=== PATIENT | male | born 1945 | race Hispanic/Latino ===

== ENCOUNTER 2019-05-13 02:38 | Inpatient (IN) | payer MEDICARE, OTHER ==
[2019-05-13] MEDS ORDERED: Ondansetron PF 4 MG/2 ML Vial IVP PRN (11:28)
[2019-05-13] MEDS ORDERED: Acetaminophen 325 MG TAB PO PRN (11:28)
[2019-05-13] MEDS ORDERED: Ondansetron ODT 4 MG TAB PO PRN (11:28)
[2019-05-13] MEDS ORDERED: cloNIDine 0.1 MG TAB PO PRN (11:34)
--- NOTE | 2019-05-13 11:34 | CT ---
CT ABDOMEN AND PELVIS WITHOUT CONTRAST: HISTORY: Back pain. COMPARISON: None. FINDINGS: The lung bases are clear. Heart size is mildly enlarged. There is severe hydroureteronephrosis. There appears to be a mass at the posterior urinary bladder, which could be sequela of prostate cancer extension into the urinary bladder. There is an abnormal m ass-like appearance of the right seminal vesicle. Diffuse osteoblastic metastatic disease. No dilated loops of large or small bowel. Mild perinephric stranding. The aortoiliac contour is nonaneurysmal. Noncontrast evaluation of the liver, spleen, and pancreas is unremarkable. IMPRESSION: Large prostate with a mass within the posterior wall of the urinary bladder, which may be prostatic c ancer extension to the urinary bladder. There is also an abnormal soft tissue mass-like appearance t o the right seminal vesicle, concerning for prostatic cancer extension into the seminal vesicle. The re is also occlusion of both ureterovesical junctions, to suggest mass, causing severe bilateral hydr oureteronephrosis. Urgent urologic consultation advised with direct visualization. POS: CET
[2019-05-13] MEDS ORDERED: Amlodipine 5 MG TAB PO SCH (11:45)
[2019-05-13] MEDS ORDERED: Folic Acid 1 MG TAB PO SCH (11:45)
[2019-05-13] MEDS ORDERED: Cyanocobalamin (Vitamin B-12) 1,000 MCG TAB PO SCH (11:45)
--- NOTE | 2019-05-13 11:58 | HP ---
CHIEF COMPLAINT: Generalized weakness and back pain. HISTORY OF PRESENT ILLNESS: The patient is a 74-year-old male, who presented to the emergency room with generalized weakness and low back pain. He has generalized body aches that started 1 or 2 days ago. He had some urinary incontinence 1 to 2 days before this, however, that has improved. No dysuria, hematuria, urgency, fever, chills reported. He denies any weight loss. He took some ibuprofen yesterday without much relief. For this reason, he presented to the emergency room. No chest pain or shortness of breath reported. He denies daily ibuprofen use. In the emergency room at [facility], his initial vital signs showed temperature 97.3, pulse rate of 70, blood pressure of 187/96, respirations of 18 with O2 saturation of 100% on room air. His workup was consistent with anemia with hemoglobin of 7 and acute kidney injury with creatinine 4.52 and BUN of 57. Please note that on the previous day, he was evaluated in the emergency room for urinary incontinence. His creatinine at that time was 3.84 with BUN of 58. He was transferred to this facility for hospital admission. PAST MEDICAL HISTORY: Reviewed with the patient and none. PAST SURGICAL HISTORY: Reviewed with the patient and none. ALLERGIES: THE PATIENT IS ALLERGIC TO CODEINE. CURRENT HOME MEDICATIONS: Reviewed with the patient and none. SOCIAL HISTORY: The patient currently lives at home with his family. No smoking, alcohol, or drug use. He makes his own decision with the help of his family. He denies any tobacco or alcohol use. FAMILY HISTORY: Negative for heart disease. REVIEW OF SYSTEMS: The patient has some urinary incontinence on and off. All other review of systems was reviewed and was found negative. PHYSICAL EXAMINATION: VITAL SIGNS: As discussed above. GENERAL: A 74-year-old male, in no apparent distress. HEENT: Head; atraumatic, normocephalic. Sclerae anicteric. Moist mucous membranes. No oral lesion. NECK: Supple. No JVD appreciated. No carotid bruit. LUNGS: Clear to auscultation bilaterally. No wheezing, rales, or rhonchi. HEART: S1 and S2 present. Regular rate and rhythm. No murmurs, rubs, or gallops appreciated. ABDOMEN: Soft and nontender. Bowel sounds present. EXTREMITIES: No edema or calf tenderness. NEUROLOGIC: Grossly nonfocal. Moves all 4 extremities. PSYCHIATRY: Alert, awake, oriented x3. SKIN: Warm and dry. LYMPH NODES: No palpable lymph nodes in the neck. PERIPHERAL VASCULAR: Radial pulses palpable bilaterally. MUSCULOSKELETAL: No joint swelling tenderness. IMAGING STUDIES: EKG by my review showed normal sinus rhythm with left ventricular hypertrophy. CT scan of the abdomen and pelvis by my review showed marked bilateral hydronephrosis and bladder distention with enlarged prostate along with diffuse blastic bone lesion. LABORATORY FINDINGS: Laboratory findings as discussed above. Hemoccult stool was negative at [place]. IMPRESSION: 1. Acute kidney injury secondary to obstructive uropathy. 2. Anemia with negative stool Hemoccult. 3. Enlarged prostate with diffuse blastic bone lesion (suspected prostate cancer). 4. Metabolic acidosis secondary to renal insufficiency. His bicarbonate was 15. 5. Hyperglycemia with blood glucose of 122, rule out diabetes. 6. Generalized weakness/body aches, probably secondary to bone metastasis. PLAN: The patient will be monitored on the medical floor. We will transfuse 1 unit of PRBC. Nephrology and Urology consultation. IV hydration. Soni catheter has been placed. We will check PSA and hemoglobin A1c. Check iron profile. We will repeat labs in a.m. Vital signs per protocol. Plan of care was discussed with the patient in detail. He stated understanding. Job ID: [id number]
--- NOTE | 2019-05-13 12:42 | RAD ---
CHEST ONE VIEW: 05/13/19 HISTORY: Back pain. COMPARISON: None. FINDINGS: Heart size is enlarged. Mild pulmonary venous congestion. No pneumothorax. No effusion. IMPRESSION: Mild cardiomegaly and pulmonary venous congestion. POS: CET
[2019-05-13 13:18] LABS: Hemoglobin A1c 5.8 % (4.0-6.0)
[2019-05-13 13:31] LABS: Anion Gap 18 mmol/L (10-20); BUN (Urea Nitrogen) 57 mg/dL (8.4-25.7); Calc. Creatinine Clearance 0 mL/min (70-130); Calcium 7.2 mg/dL (7.8-10.44); Carbon Dioxide 17 mmol/L (23-31); Chloride 107 mmol/L (98-107); Estimated GFR-MDRD 15; Glucose 84 mg/dL (83-110); Iron 83 ug/dL (65-175); Iron Binding Capacity, Total 254 mcg/dL (261-462); Potassium 4.8 mmol/L (3.5-5.1); Sodium 137 mmol/L (136-145)
[2019-05-13] MEDS: Sodium Chloride 0.9% 1,000 ML IV SCH ×2 (14:01→22:32)
[2019-05-13 14:07] VITALS: BMI 25.2
[2019-05-13 14:21] LABS: Ferritin 19392.31 ng/mL (22-322)
[2019-05-13 15:03] LABS: PSA-Symptomatic (DIAGNOSTIC) 1711.01 ng/mL (0-4.0)
[2019-05-13 16:46] LABS: Clarity Clear (Clear); Leukocyte Negative (Negative); Nitrite Negative (Negative); Specific Gravity, Urine 1.015 (1.005-1.030); pH, Urine 5.5 (5.0-9.0)
[2019-05-13 16:47] LABS: Bacteria/HPF None Seen HPF (None Seen); Bilirubin Negative (Negative); Blood, Urine Moderate (Negative); Glucose, Urine (Dipstick) Negative (Negative); Hyaline Casts/LPF 0-3 HYALINE CAST LPF (0-3 Hyaline); Protein, Urine (Dipstick) 30 mg/dL (Neg-Trace); Squamous Epithelial 0-3 HPF (0-3); Urobilinogen 0.2 mg/dL (0.2-1.0); WBC/HPF 0-3 HPF (0-3)
--- NOTE | 2019-05-13 17:39 | CON ---
DATE OF CONSULTATION: 05/13/2019 SERVICE: Urology. CONSULTING: [facility]. GAS WELDING EQUIPMENT MECHANIC: Dr. Cole. REASON FOR CONSULTATION: Hydronephrosis. HISTORY OF PRESENT ILLNESS: Mr. Toledo is a 74-year-old male, who presented to the emergency room yesterday with generalized weakness and lower back pain as well as pain down into his legs. He stated these aches started about 1 to 2 days ago. Upon arrival to the ER at [facility] in [place], he was found to be in renal failure with a creatinine of 4.5. CT was done, which demonstrated bilateral hydronephrosis and a distended filled bladder. A catheter was placed at that time and he was subsequently transferred to [facility] in [place]. On my discussion with the patient, he states that he does have urinary incontinence and has urinary frequency about 15 times per day with nocturia x7. His stream he thinks is okay, but he does admit to hesitancy and sometimes intermittency. He is currently not complaining of any significant complaints with his catheter at this current time. The patient has very little health care and has known real medical history primarily due to the fact that he does not go to the doctor. PAST MEDICAL HISTORY: None. PAST SURGICAL HISTORY: None. ALLERGIES: CODEINE. HOME MEDICATIONS: None. SOCIAL HISTORY: The patient lives at home with his family. He denies smoking, illicit drugs, or alcohol use. FAMILY HISTORY: Noncontributory. REVIEW OF SYSTEMS: A 12-point review of systems reviewed and negative other than what was commented on the HPI. Additionally, he has no shortness of breath, lower extremity swelling, chest pain, diarrhea, constipation, hematuria, UTIs, dysuria , nephrolithiasis, or family history of prostate cancer. Remainder of the review of systems reviewed and negative. PHYSICAL EXAMINATION: VITAL SIGNS: Temperature 97.8, pulse 96, respirations 16, blood pressure 188/91 , and saturations 96% on room air. GENERAL: No apparent distress. Well-nourished, well-developed, appears stated age. HEENT: Normocephalic, atraumatic. Pupils symmetric and round. Sclerae are nonicteric. Moist mucous membranes. Trachea midline. CARDIOVASCULAR: Regular rate and rhythm. Normal S1, S2. Symmetric pulses. CHEST: No increased work of breathing. Symmetric expansion. LUNGS: Clear anteriorly. ABDOMEN: Soft, nontender, and nondistended. Positive bowel sounds. No organomegaly. No hernias. No peritoneal signs or guarding. : Soni catheter in place, draining clear yellow urine. Nonfocal penis without lesions. Testes are bilaterally descended. HENRIQUE: Grade IV prostate with hard irregular feel throughout the prostate, fixed, worse at L base with extension onto bladder and SVs EXTREMITIES: No clubbing, cyanosis, or edema. MUSCULOSKELETAL: No joint deformities or joint erythema noted. Full range of motion. SKIN: Warm and dry. Good turgor. No rashes or lesions. LYMPH NODES: No lymphadenopathy in the cervical, supraclavicular, axillary regions, or inguinal area. NEUROLOGIC: Cranial nerves 2 through 12 grossly intact. No focal or sensory motor deficits identified. PSYCHIATRIC: Alert and oriented x3. Appropriate mood and affect. LABORATORY EVALUATION: The full set of labs are in the [employer] system which I have reviewed. Of note, the patient's creatinine is currently 4.01 with a BUN of 57. PSA is 1711. CT done on May 13, demonstrates a large prostate with mass effect on the posterior wall of the urinary bladder, which may be prostatic cancer extension into the bladder. There is also abnormal soft tissue, masslike appearance in the right seminal vesicle concerning for prostate cancer extension there. There is potential occlusion of both ureterovesical junctions causing severe bilateral hydronephrosis. ASSESSMENT AND PLAN: A 74-year-old male with likely advanced metastatic prostate cancer causing bilateral ureteral obstruction. In this setting, stents are generally extremely difficult to place and have a high risk of occlusion despite stenting. I would give strong consideration to bilateral percutaneous nephrostomy tubes, which I will set the patient up for. With a PSA 1700, I would also recommend getting a bone scan as he likely has significant skeletal osseous metastatic disease. Referral to Oncology would be recommended. I will start the patient on bicalutamide at this time. We may also consider having the patient undergo a prostate biopsy while he is here in the hospital to go ahead and obtain a tissue diagnosis, so that the patient may subsequently start on Lupron. I will start him on bicalutamide at the current time for initiation of androgen deprivation, which will help his prostate cancer. Ketoconazole was not available in hospital. Some of this workup can also be done as an outpatient if necessary. I would recommend keeping the Soni catheter in place for the time being. I will continue to follow along with this patient and make recommendations. Job ID: [id number] MTDD
[2019-05-13 18:34] LABS: INR-International Normal Ratio 1.2; PTT 34.5 SEC (22.9-36.1); Prothrombin Time 15.4 SEC (12.0-14.7)
[2019-05-13] MEDS: Tamsulosin HCl 0.4 MG CAP PO SCH (22:31)
[2019-05-13] MEDS: Senokot S 8.6-50 MG TAB PO SCH (22:31)
[2019-05-13] MEDS: Amlodipine 5 MG TAB PO SCH (22:31)
[2019-05-13] MEDS: Heparin 5,000 UNITS/ML VIAL SC SCH (22:33)
--- NOTE | 2019-05-14 00:05 | CON ---
DATE OF CONSULTATION: CONSULTING PHYSICIAN: Kadi Madrigal MD REASON FOR CONSULTATION: Advanced kidney disease. IMPRESSION: 1. Advanced chronic kidney disease, this is likely in the context of long-time obstructive uropathy. 2. Metabolic acidosis related to problem #1. 3. Anemia, likely in the context of anemia of chronic disease. 4. Obstructive uropathy in the context of prostatic pathology. PLAN: 1. The patient already has a Soni catheter, which is very important. 2. Urology is on the case. 3. We will continue to monitor the renal function status post relieve of his obstruction and identify where the renal function will settle as baseline. 4. No emergent indication for renal replacement therapy (hemodialysis though this modality of treatment might become indicated if the patient's renal function does not show significant improvement). 5. Further management will be dependent on the clinical course. Meanwhile, renally dose all medications for low GFR and avoid potentially nephrotoxic agents. HISTORY OF PRESENT ILLNESS: A 74-year-old gentleman, transferred from [facility] where the patient initially presented with generalized weakness and back pain. Clinical evaluation revealed the patient with bilateral hydronephrosis as well as enlarged prostate. Soni catheterization did relieve bladder distention. The patient gives a history of frequent urination during the day, according to the patient up to 15 times small amount. The patient denies any blood in the urine nor any blood in the stool. As a result of these findings, decision has been taken to involve Renal in the management of this case. PAST MEDICAL HISTORY: Pretty much insignificant. ALLERGIES: TO CODEINE. MEDICATIONS: None. SOCIAL HISTORY: Denies alcohol. No tobacco. No illicit drug use. FAMILY HISTORY: No family history of kidney disease. REVIEW OF SYSTEMS: As documented in the body of the history. All other systems were reviewed and found not to be significantly related to present illness. PHYSICAL EXAMINATION: GENERAL: The patient is found not to be in any obvious respiratory distress, noted with the following vital signs. VITAL SIGNS: Afebrile, temperature 97.8, pulse 73, respiratory rate of 16, O2 saturation of 96% with blood pressure of 188/91. HEENT: Unremarkable. Moist oral mucosa. No conjunctival injection or icterus. NECK: Supple. CARDIOVASCULAR: First and second heart sounds are heard. RESPIRATORY: Clear to auscultation. DIGESTIVE: Reveals a benign abdomen with positive bowel sounds. EXTREMITIES: No peripheral edema. SKIN: No new gross rash, lymphatics, no peripheral lymphadenopathy. SUMMARY: A 74-year-old gentleman who presented here with low back pain, now noted with significant obstructive uropathy and renal failure. Thank you for this consultation. We will follow with you. Job ID: [id number]
[2019-05-14] MEDS: Sodium Chloride 0.9% 1,000 ML IV SCH ×3 (03:35→18:45)
[2019-05-14 06:01] LABS: #Eosinphils 0.1 thou/uL (0.0-0.7); #Lymphocytes 0.6 thou/uL (1.20-3.40); #Monocytes 0.2 thou/uL (0.11-0.59); #Neutrophils 2.1 thou/uL (1.40-6.50); %Basophils 0.4 % (0.0-1.0); %Eosinophils 2.2 % (0.0-10.0); %Lymphocytes 18.5 % (21.0-51.0); %Monocytes 6.1 % (0.0-10.0); %Neutrophils 72.8 % (42.0-75.0); Hemoglobin 8.7 g/dL (14.0-18.0); Mean Corpuscular HGB CONC 33.4 g/dL (32.0-36.0); Mean Corpuscular Hemoglobin 30.3 pg (27.0-31.0); Mean Corpuscular Volume 90.8 fL (78.0-98.0); Mean Platelet Volume 7.1 fL (7.4-10.4); Platelet Count 178 thou/uL (130-400); RBC Distribution Width 14.3 % (11.5-14.5); Red Blood Cell (RBC) Count 2.86 mill/uL (4.70-6.10); White Blood Cell (WBC) Count 2.9 thou/uL (4.8-10.8)
[2019-05-14 06:23] LABS: Albumin 3.8 g/dL (3.4-4.8); Anion Gap 17 mmol/L (10-20); BUN (Urea Nitrogen) 56 mg/dL (8.4-25.7); BUN/Creatinine Ratio 15.38; Calc. Creatinine Clearance 17 mL/min (70-130); Calcium 6.8 mg/dL (7.8-10.44); Carbon Dioxide 15 mmol/L (23-31); Chloride 110 mmol/L (98-107); Estimated GFR-MDRD 16; Glucose 88 mg/dL (83-110); Phosphorus 5.4 mg/dL (2.3-4.7); Potassium 4.8 mmol/L (3.5-5.1); Sodium 137 mmol/L (136-145)
[2019-05-14] MEDS: Amlodipine 5 MG TAB PO SCH ×2 (09:43→21:39)
[2019-05-14] MEDS: Folic Acid 1 MG TAB PO SCH (09:43)
[2019-05-14] MEDS: Cyanocobalamin (Vitamin B-12) 1,000 MCG TAB PO SCH (09:43)
[2019-05-14] MEDS: Senokot S 8.6-50 MG TAB PO SCH ×2 (09:43→21:39)
[2019-05-14] MEDS: Bicalutamide 50 MG TAB PO SCH (09:44)
[2019-05-14] MEDS: Heparin 5,000 UNITS/ML VIAL SC SCH (09:44)
[2019-05-14] MEDS ORDERED: Fentanyl 100 MCG/2 ML VIAL ONE (10:17)
[2019-05-14] MEDS ORDERED: Midazolam HCl 2 mg/2 ml Vial ONE (10:17)
[2019-05-14] MEDS ORDERED: Sodium Bicarbonate 2.5 MEQ/5 ML VIAL ONE (10:18)
[2019-05-14] MEDS ORDERED: Sodium Chloride 0.9% 10 ML ONE (10:18)
[2019-05-14] MEDS ORDERED: Iopamidol 300 61% 30 ML VIAL ONE (10:38)
--- NOTE | 2019-05-14 14:27 | SPC ---
Sonographic guided left percutaneous nephrostomy catheter placement Sonographic guided right percutaneous nephrostomy catheter placement. HISTORY: Pelvic cancer with bilateral ureteral obstruction. CONSCIOUS SEDATION: At least 45 minutes was spent with the patient for conscious sedation. FINDINGS: After explaining the procedure and answering all questions, patient was placed on the fluor oscopy table in prone position. Sterile technique, buffered local anesthesia, sonographic guidance, and a left flank approach were used to carefully advance a 22-gauge spinal needle through a dilated l eft inferior pole renal calyx into the collecting system. Small amount of blood-tinged urine was aspirated. Guidewire was then placed. Catheter was positioned into the distal left ureter, where a wire and contrast were unable to be pass ed into the urinary bladder. Over the wire, an 8 Nauruan skater nephrostomy catheter was carefully placed into the renal pelvis. Catheter was left to drain urine. Secured externally with 0 silk suture . Patient was then repositioned for access to the right renal system. Sterile technique, buffered local anesthesia, sonographic guidance, and a right flank approach were used to carefully advance a 22-gauge spinal needle through a dilated right inferior pole renal calyx into the collecting system. Small amount of blood-tinged urine was aspirated. Guidewire was then placed. Catheter was positioned into the distal right ureter, where a wire and contrast were unable to be pas sed into the urinary bladder. Over the wire, an 8 [place] skater nephrostomy catheter was carefully placed into the renal pelvis. Catheter was left to drain urine. Secured externally with 0 silk suture . Fluoroscopy time 7.0 minutes. Patient tolerated the procedure well and was returned in unchanged condition. IMPRESSION: Technically successful ultrasound-guided bilateral percutaneous nephrostomy placement. Ob struction at each distal ureter.
[2019-05-14] MEDS ORDERED: Fleet Enema 133 ML BOT PR SCH (18:15)
--- NOTE | 2019-05-14 18:25 | PRG ---
DATE OF SERVICE: 05/14/2019 SUBJECTIVE: The patient states he is feeling well. His pain in his back and legs has pretty much disappeared. He had his nephrostomy tubes placed today. His Soni catheter is still in. He denies any fevers or chills, nausea or vomiting. Otherwise, states he is doing fine. OBJECTIVE: VITAL SIGNS: Temperature 98, pulse 77, respirations 18, blood pressure 148/76, and saturation 96% on room air. GENERAL: No apparent distress. Communicative and alert. CARDIOVASCULAR: Regular rate and rhythm. Normal S1 and S2. ABDOMEN: Soft, nontender, and nondistended. Positive bowel sounds. BACK: Nephrostomy tubes in place, draining clear yellow urine. : Soni catheter in place, draining clear yellow urine. EXTREMITIES: No clubbing, cyanosis, or edema. CHEST: No increased work of breathing. Symmetric expansion of the lungs. LABORATORY EVALUATION: Full set of labs are in the [employer] system, which I have reviewed. Of note, white count is 2.9, with a hemoglobin of 8.7. Creatinine has come down to 3.64. Urinalysis demonstrates moderate blood, 4 to 6 red cells, no evidence of infection. ASSESSMENT AND PLAN: A 74-year-old male with likely metastatic advanced prostate cancer with bilateral ureteral obstruction and bilateral hydronephrosis, managed with nephrostomy tubes. We will plan to remove his catheter tomorrow. I have discussed prostate biopsy with the patient. I described how a transrectal ultrasound-guided prostate biopsy is performed. Since he is in the hospital, we can do this in the operating room with some sedation, which will make the experience more pleasant. Risks include, but are not limited to, serious bleeding, prostatitis or sepsis, and nondiagnostic results. He understands the risks of biopsy and wishes to proceed forward. I will have him do a Fleet enema on the morning of the biopsy, administered by the nursing staff, and start him on a dose of ceftriaxone for prophylaxis. He will need to be n.p.o. after midnight. Job ID: [id number]
[2019-05-14] MEDS ORDERED: Epoetin (ESRD) 20,000 UNITS/ML SC SCH (19:45)
[2019-05-14] MEDS ORDERED: EPOETIN ALFA-EPBX (ESRD) 4,000 UNIT/ML VIAL SC SCH (20:00)
--- NOTE | 2019-05-14 20:11 | PRG ---
DATE OF SERVICE: 05/14/2019 SUBJECTIVE: The patient is seen and examined, seems to be feeling a little bit better. Noted with the following vital signs. OBJECTIVE: VITAL SIGNS: Afebrile, temperature 98; pulse 77; respiratory rate of 18; O2 saturations 96% with blood pressure 148/76. HEENT: Unremarkable. CARDIOVASCULAR SYSTEM: First and second heart sounds were heard. RESPIRATORY SYSTEM: Clear to auscultation. DIGESTIVE SYSTEM: Revealed a benign abdomen. EXTREMITIES: No peripheral edema. SKIN: No new gross rash. LYMPHATICS: No peripheral lymphadenopathy. LABORATORY INVESTIGATION: Showed a white count of 2.9 and hemoglobin of 8.7. Chemistry showed a creatinine down to 3.64, bicarb of 15, potassium of 6.8 with a phosphorus of 5.4. Ferritin 19,392, iron of 83. IMPRESSION: 1. Advanced chronic kidney disease in the context of chronic obstructive uropathy. 2. Anemia, likely anemia of chronic kidney disease. 3. Likely metastatic prostatic carcinoma. PLAN: 1. The patient to be placed on erythropoietin stimulating agent. 2. The patient likely to benefit from bicarb supplementation. 3. We will start this patient on active vitamin D. 4. No emergent indication at this point for renal replacement therapy. Job ID: [id number]
--- NOTE | 2019-05-14 21:25 | PRG ---
DATE OF SERVICE: 05/14/2019 SUBJECTIVE: A 74-year-old male with no previous medical history, presented to the hospital with generalized weakness and back pain. His workup was consistent with acute kidney injury along with obstructive uropathy. Soni catheter was placed. CURRENT MEDICATIONS: Reviewed. OBJECTIVE: VITAL SIGNS: Temperature 97.7, respirations 16, pulse rate 73, blood pressure 137/77, O2 saturation 100% on room air, output of 3400, input 4550. GENERAL: A 74-year-old male, in no apparent distress. HEENT: Head; atraumatic, normocephalic. Sclerae anicteric. Moist mucous membranes. No oral lesion. NECK: Supple. No JVD appreciated. No carotid bruit. LUNGS: Clear to auscultation bilaterally. No wheezing, rales, or rhonchi. HEART: S1 and S2 present. Regular rate and rhythm. 2/6 systolic murmur over the left lateral sternal border. ABDOMEN: Soft, nontender. Bowel sounds present. No rebound or guarding. : Bilateral nephrostomy tube noted. EXTREMITIES: No edema or calf tenderness. NEUROLOGIC: Grossly nonfocal. Moves all 4 extremities. PSYCHIATRIC: Alert, awake, oriented x3. Normal affect. LABORATORY FINDINGS: WBC 2.9 with hemoglobin 8.7, hematocrit 26, platelet of 178. Chemistry showed sodium 137, potassium 4.8, chloride 110, bicarb 15, BUN 56, creatinine 3.64. Ferritin was 19,392. PSA 1711. Hemoglobin A1c 5.8. Echocardiogram showed ejection fraction 55% to 60% with [id number] mitral regurgitation, [id number] tricuspid regurgitation, severely elevated pulmonary artery pressure. Chest x-ray by my review was negative for infiltrate. IMPRESSION: 1. Acute kidney injury secondary to prostate cancer. 2. Chronic anemia. 3. Diffuse blastic bone lesion secondary to bone metastasis. 4. Metabolic acidosis. 5. Impaired glucose tolerance. 6. Generalized weakness, multifactorial. 7. Leukopenia. PLAN: The patient underwent bilateral nephrostomy today. He will undergo prostate biopsy tomorrow. Soni catheter will probably be discontinued. He will be n.p.o. past midnight. We will continue IV hydration. We will recheck labs in a.m. He will receive ceftriaxone prior to procedure. We will continue amlodipine. He is currently on Casodex. Epogen has been started for anemia. Heparin subcu will be discontinued. Continue Flomax. Bone scan has been ordered. Oncology has been consulted. Job ID: [id number]
[2019-05-14] MEDS: Tamsulosin HCl 0.4 MG CAP PO SCH (21:38)
[2019-05-14] MEDS: Sodium Bicarbonate Tab 325 MG TAB PO SCH (21:38)
[2019-05-15 05:50] LABS: Platelet Count 188 thou/uL (130-400)
[2019-05-15 06:15] LABS: Albumin 3.6 g/dL (3.4-4.8); Anion Gap 16 mmol/L (10-20); BUN (Urea Nitrogen) 54 mg/dL (8.4-25.7); BUN/Creatinine Ratio 16.31; Calc. Creatinine Clearance 19 mL/min (70-130); Calcium 6.7 mg/dL (7.8-10.44); Carbon Dioxide 15 mmol/L (23-31); Chloride 112 mmol/L (98-107); Estimated GFR-MDRD 18; Glucose 82 mg/dL (83-110); Phosphorus 4.8 mg/dL (2.3-4.7); Potassium 4.5 mmol/L (3.5-5.1); Sodium 138 mmol/L (136-145)
[2019-05-15] MEDS: Sodium Chloride 0.9% 1,000 ML IV SCH ×2 (07:30→12:51)
[2019-05-15] MEDS ORDERED: cefTRIAXone\\ROCEPHIN 1 GM in Sodium Chloride 0.9% 100 ML IVPB SCH (09:00)
[2019-05-15] MEDS: Bicalutamide 50 MG TAB PO SCH (09:19)
[2019-05-15] MEDS: Amlodipine 5 MG TAB PO SCH ×2 (09:20→20:38)
[2019-05-15] MEDS: Senokot S 8.6-50 MG TAB PO SCH ×2 (09:21→20:38)
[2019-05-15] MEDS: Cyanocobalamin (Vitamin B-12) 1,000 MCG TAB PO SCH ×2 (09:22→16:15)
[2019-05-15] MEDS ORDERED: cefTRIAXone\\ROCEPHIN 1 GM VIAL ONE (12:57)
[2019-05-15] MEDS ORDERED: Sodium Chloride 0.9% 100 ML ONE (12:57)
[2019-05-15] MEDS ORDERED: PROPOFOL 200 MG/20 ML VIAL ONE (13:46)
[2019-05-15] MEDS ORDERED: PHENYLEPHRINE-NS 100 MCG/ML 10 ML SYRINGE ONE (13:46)
[2019-05-15] MEDS ORDERED: Fentanyl 100 MCG/2 ML VIAL ONE (14:42)
[2019-05-15] MEDS ORDERED: Midazolam HCl 2 mg/2 ml Vial ONE (14:42)
[2019-05-15] MEDS ORDERED: Propofol 500 MG/50 ML VIAL ONE (14:42)
--- NOTE | 2019-05-15 14:45 | NM ---
EXAM: NM Bone Scan STANDARD PROVIDED CLINICAL HISTORY: Prostate cancer COMPARISON: CT abdomen and pelvis 05/13/2019 FINDINGS: 30.4 mCi technetium 99 M labeled MDP IV Multifocal abnormal radiotracer uptake involving primarily the axial skeleton with involvement of bot h proximal femora and both humeri also noted. Given the diffuse osseous sclerosis seen by CT there is likely a partial SuperScan effect. IMPRESSION: Findings compatible with diffuse osseous metastatic disease.
[2019-05-15] MEDS ORDERED: Ondansetron HCl/PF 4 MG/2 ML Vial IVP PRN (15:47)
[2019-05-15] MEDS: Sodium Bicarbonate Tab 325 MG TAB PO SCH ×2 (16:14→20:38)
[2019-05-15] MEDS: Calcitriol 0.25 MCG CAP PO SCH (16:14)
[2019-05-15] MEDS: Folic Acid 1 MG TAB PO SCH (16:15)
[2019-05-15] MEDS: Tamsulosin HCl 0.4 MG CAP PO SCH (20:38)
--- NOTE | 2019-05-15 20:49 | PRG ---
DATE OF SERVICE: 05/15/2019 SUBJECTIVE: The patient is seen and examined. He claims to be feeling better, noted with the following vital signs. OBJECTIVE: VITAL SIGNS: Afebrile, temperature 97.5, pulse 75, respiratory rate of 16, O2 saturation of 99% with blood pressure 129/75 to 147/83. HEENT: Unremarkable. CARDIOVASCULAR SYSTEM: First and second heart sounds were heard. RESPIRATORY SYSTEM: Clear to auscultation. DIGESTIVE SYSTEM: Revealed a benign abdomen. Positive bowel sounds. EXTREMITIES: No peripheral edema. SKIN: No new gross rash. LYMPHATICS: No peripheral lymphadenopathy. LABORATORY INVESTIGATION: Showed a hemoglobin of 9. Chemistry showed a creatinine of 3.31, BUN of 54, bicarb of 15, phosphorus of 4.8 with a calcium of 6.7. IMPRESSION: 1. Acute on chronic kidney disease. 2. Chronic kidney disease, advanced likely in the context of chronic obstructive uropathy. 3. Metastatic prostatic carcinoma. 4. Metabolic acidosis. 5. Anemia. PLAN: 1. The patient to continue with current renal supportive measures. 2. Discontinue IV fluids. 3. Sodium bicarbonate supplementation. 4. Erythropoiesis-stimulating agent. 5. Renally dose all medications and avoid potentially nephrotoxic agents. 6. Further management to be dependent on the clinical course. Job ID: [id number]
--- NOTE | 2019-05-15 21:53 | OP ---
DATE OF PROCEDURE: 05/15/2019 SERVICE: Urology. PREOPERATIVE DIAGNOSIS: Elevated PSA. POSTOPERATIVE DIAGNOSIS: Elevated PSA. PROCEDURE PERFORMED: Transrectal ultrasound-guided biopsy x4. INDICATION FOR PROCEDURE: Mr. Toledo is a 74-year-old male, who has a high likelihood of having metastatic prostate cancer. His PSA is 1700 with extremely irregular prostate on CT and by physical exam. He is now coming in for prostate biopsies for confirmation of tissue diagnosis. Risks and benefits have been discussed and he has agreed to proceed. DESCRIPTION OF PROCEDURE: After identification of armband and verification of consent, the patient was brought back to the operating room. He underwent total intravenous anesthesia with sedatives. He was placed in the left lateral decubitus position, and ultrasound was inserted through the rectum. The prostate was extremely irregular with extension of the prostate occluding the seminal vesicles and into the bladder base. The bladder was completely decompressed as the catheter had been placed previously. The catheter was removed prior to biopsies being taken. Using the core needle biopsy, four cores were taken from the prostate in various locations. Laterality does not matter as this patient likely has metastatic cancer. The four cores came out firm and garza and were submitted for routine pathologic evaluation in formalin. The ultrasound probe was removed. There was minimal to no bleeding. He was then returned to the supine position, awakened and taken to PACU for recovery in stable condition. COMPLICATIONS: None. ESTIMATED BLOOD LOSS: Minimal. RETAINED TUBES AND DRAINS: None. SPECIMENS: Prostate biopsies x4. DISPOSITION: The patient will be readmitted back to the hospital. Once he has his tissue confirmation and his creatinine has improved, he potentially can be discharged home with his cancer care being handled on an outpatient basis. Job ID: [id number]
--- NOTE | 2019-05-15 22:06 | PDOC.PN ---
- Subjective Encounter Start Date: 05/15/19 Encounter Start Time: 16:00 Patient seen and examined for CALLIE and new diagnosis of Prostate CA. s/p Prostate biopsy. No new complaints. No overnight events - Objective Resuscitation Status - Order Detail: 05/13/19 11:28 Resuscitation Status Routine Resuscitation Status: FULL: Full Resuscitation MAR Reviewed: Yes Vital Signs & Weight: Vital Signs (12 hours) Temp Pulse Resp BP BP BP Pulse Ox 05/15/19 20:38 92 147/79 H 05/15/19 20:35 100 05/15/19 20:21 97.4 F L 92 18 147/79 H 100 05/15/19 16:00 97.5 F L 75 16 129/75 99 05/15/19 12:00 97.9 F 85 16 147/83 H 99 Weight Weight 152 lb I&O: 05/14/19 05/15/19 05/16/19 06:59 06:59 06:59 Intake Total 2500 4550 Output Total 1650 4050 1870 Balance 850 500 -1870 Result Diagrams: 05/16/19 05:48 05/16/19 05:48 Phys Exam - Physical Examination Constitutional: NAD Respiratory: no wheezing, no rhonchi Cardiovascular: RRR, no rub Gastrointestinal: soft, non-tender, positive bowel sounds B/L Nephrostomy Musculoskeletal: no edema Neurological: non-focal, moves all 4 limbs Psychiatric: A&O x 3 Dx/Plan - Plan DVT proph w/SCDs IMPRESSION: 1. Acute kidney injury secondary to prostate cancer with bone metastasis(new diagnosis). 2. Chronic anemia. 3. Generalized weakness, multifactorial. 4. Metabolic acidosis. 5. Impaired glucose tolerance. 6. Leukopenia. PLAN: Cont IVF Cont Casodex Cont Amlodipine Ketoconazole not in formulary AM labs Laboratory Tests 05/13/19 05/15/19 12:20 05:06 BUN 54 H Creatinine 3.31 H Ferritin 48216.31 H Prostate Specific Ag 1711.01 H Review of Systems - Review of Systems Respiratory: negative: Cough, Dry, Shortness of Breath, Hemoptysis, SOB with Excertion, Pleuritic Pain, Sputum, Wheezing Cardiovascular: negative: chest pain, palpitations, orthopnea, paroxysmal nocturnal dyspnea, edema, light headedness, other - Medications/Allergies Allergies/Adverse Reactions: Allergies Allergy/AdvReac Type Severity Reaction Status Date / Time No Known Allergies Allergy Verified 05/13/19 13:29 Medications: Current Medications Acetaminophen (Tylenol) 650 mg PO Q4H PRN PRN Reason: Headache/Fever/Mild Pain (1-3) Last Admin: 05/13/19 14:00 Dose: 650 mg Amlodipine Besylate (Norvasc) 5 mg PO BID [facility] Last Admin: 05/15/19 20:38 Dose: 5 mg Bicalutamide (Casodex) 50 mg PO DAILY [facility] Last Admin: 05/15/19 09:19 Dose: 50 mg Calcitriol (Rocaltrol) 0.25 mcg PO DAILY [facility] Last Admin: 05/15/19 16:14 Dose: 0.25 mcg Clonidine (Catapres) 0.1 mg PO Q4H PRN PRN Reason: SBP Greater Than 180 Last Admin: 05/13/19 17:36 Dose: 0.1 mg Cyanocobalamin (Vitamin B-12) 1,000 mcg PO DAILY [facility] Last Admin: 05/15/19 16:15 Dose: 1,000 mcg Epoetin Jimmy-epbx (Retacrit) 7,500 unit SC Q7D@1999 [facility] Last Admin: 05/14/19 21:38 Dose: 7,500 unit Folic Acid (Folvite) 1 mg PO DAILY [facility] Last Admin: 05/15/19 16:15 Dose: 1 mg Ceftriaxone Sodium 1 gm/ (Sodium Chloride) 100 mls @ 200 mls/hr IVPB ONCALL-OR [facility] Ondansetron HCl (Zofran Odt) 4 mg PO Q6H PRN PRN Reason: Nausea/Vomiting Ondansetron HCl (Zofran) 4 mg IVP Q6H PRN PRN Reason: Nausea/Vomiting Senna/Docusate Sodium (Senokot S) 2 tab PO BID [facility] Last Admin: 05/15/19 20:38 Dose: 2 tab Sodium Bicarbonate (Bicarbonate, Sodium) 650 mg PO BID [facility] Last Admin: 05/15/19 20:38 Dose: 650 mg Sodium Chloride (Flush - Normal Saline) 10 ml IVF PRN PRN PRN Reason: Saline Flush Tamsulosin HCl (Flomax) 0.4 mg PO HS [facility] Last Admin: 05/15/19 20:38 Dose: 0.4 mg
[2019-05-16 06:19] LABS: Hemoglobin 8.8 g/dL (14.0-18.0); Platelet Count 215 thou/uL (130-400)
[2019-05-16 06:36] LABS: Albumin 3.7 g/dL (3.4-4.8); Anion Gap 16 mmol/L (10-20); BUN (Urea Nitrogen) 45 mg/dL (8.4-25.7); BUN/Creatinine Ratio 16.67; Calc. Creatinine Clearance 23 mL/min (70-130); Calcium 7.2 mg/dL (7.8-10.44); Carbon Dioxide 17 mmol/L (23-31); Chloride 110 mmol/L (98-107); Estimated GFR-MDRD 23; Glucose 97 mg/dL (83-110); Phosphorus 4.1 mg/dL (2.3-4.7); Potassium 4.2 mmol/L (3.5-5.1); Sodium 139 mmol/L (136-145)
[2019-05-16] MEDS: Sodium Bicarbonate Tab 325 MG TAB PO SCH (08:52)
[2019-05-16] MEDS: Cyanocobalamin (Vitamin B-12) 1,000 MCG TAB PO SCH (08:53)
[2019-05-16] MEDS: Folic Acid 1 MG TAB PO SCH (08:53)
[2019-05-16] MEDS: Amlodipine 5 MG TAB PO SCH (08:53)
[2019-05-16] MEDS: Bicalutamide 50 MG TAB PO SCH (08:53)
[2019-05-16] MEDS: Calcitriol 0.25 MCG CAP PO SCH (08:53)
[2019-05-16] MEDS: Senokot S 8.6-50 MG TAB PO SCH (08:54)
--- NOTE | 2019-05-16 13:32 | PRG ---
DATE OF SERVICE: 05/16/2019 SUBJECTIVE: The patient states he is feeling fine. No complaints. He has not urinated at all, but all of his urine is coming out into the nephrostomy tubes. He underwent a prostate biopsy yesterday, which was uneventful. Denies any fevers, prostate pain, or significant bleeding. OBJECTIVE: VITAL SIGNS: Temperature 98.2, pulse 90, respirations 20, blood pressure 133/82, and saturation 98% on room air. GENERAL: No apparent distress. Communicating and alert. CARDIOVASCULAR: Regular rate and rhythm. CHEST: No increased work of breathing. ABDOMEN: Soft, nontender, nondistended. Positive bowel sounds. BACK: Both nephrostomy tubes in place. Clear urine on the left, bloody urine on the right. : Soni catheter is gone. No blood at the meatus. HENRIQUE is deferred. EXTREMITIES: No clubbing, cyanosis or edema. LABORATORY EVALUATION: The full set of labs are in the [employer] system which I have reviewed. Of note, the patient's creatinine is down to 2.7. Hemoglobin is currently 8.8. ASSESSMENT AND PLAN: A 74-year-old male with likely metastatic prostate cancer, status post prostate biopsy. Bone scan was done yesterday which demonstrates diffuse osseous metastatic disease. The patient will likely need Taxotere chemotherapy, which can be arranged as an outpatient. He has already been started on bicalutamide. I would also recommend initiating androgen deprivation therapy as soon as possible. I have given the patient explicit instructions that he is to follow up with me as soon as possible after he is discharged from the hospital that we may initiate Lupron once we get the biopsy results back confirming prostate cancer. In the meantime, he has remained on bicalutamide and keep both nephrostomy tube to gravity drainage. Depending on the response to his chemo, he may be able to get rid of his nephrostomy tubes in the future, but at the current time, these will need to remain in place indefinitely until there is regression of the tumor around his bladder base. I have gone over all of the patient's discharge instructions and provided him my card for a followup appointment. It is imperative that he follow up with me or risks, mortality from lack of treatment of his fairly advanced prostate cancer. Job ID: [id number]
[2019-05-16 16:42] VITALS: BP 145/78; TEMP 98.1
[2019-05-16] MEDS: Tamsulosin HCl 0.4 MG CAP PO SCH (18:35)
--- NOTE | 2019-05-17 14:01 | DIS ---
DATE OF ADMISSION: 05/13/2019 DATE OF DISCHARGE: 05/16/2019 DISCHARGE DISPOSITION: Home. FOLLOWUP: 1. Follow up with primary care physician at [facility] in 1 week. 2. Follow up with Urology, Dr. Cole as scheduled. 3. Follow up with Dr. Wallis next week. 4. Follow up with Dr. Pearl Cole after a week. Basic metabolic profile after 3 to 4 days is recommended. Primary care physician advised to follow. DISCHARGE MEDICATIONS: 1. Amlodipine 5 mg b.i.d. 2. Casodex 50 mg daily. 3. Calcitriol 0.25 mcg daily. 4. Folic acid 1 mg daily. 5. Sodium bicarbonate 650 mg b.i.d. 6. Flomax 0.4 mg at bedtime. The patient was seen and examined on the day of discharge. Denies any new complaints. No chest pain, shortness of breath, or palpitations reported. BRIEF HOSPITAL COURSE: The patient is a 74-year-old male with no significant past medical history, presented to the hospital with generalized weakness and back pain on 05/13/2019. His workup was consistent with acute kidney injury along with enlarged prostate with diffuse blastic bone lesion on the CT scan. His creatinine on admission was 4.52 with BUN of 57. Please refer to the history and physical for further details. The patient was admitted to the hospital with a diagnosis of acute kidney injury secondary to obstructive uropathy. The patient was evaluated by Nephrology as well as Urology. With IV hydration, his creatinine improved. He also had bilateral nephrostomy. Soni catheter which was placed on admission, has been discontinued. His PSA level was 1711. He has been started on Casodex. He will follow up with Dr. Cole for Lupron therapy. His creatinine on the day of discharge is 2.7 with BUN of 45. He also underwent transrectal ultrasound-guided prostate biopsy on [address] Cole. RADIOLOGICAL TESTS: Echocardiogram showed ejection fraction 55% to 60% with [id number] mitral regurgitation, rddthslm-st-[id number] tricuspid regurgitation and severely elevated pulmonary artery pressure of 65. CT scan of the abdomen and pelvis showed large prostate with mass within the posterior wall of the urinary bladder. Bone scan nuclear medicine testing showed findings compatible with diffuse osseous metastatic disease. FINAL DIAGNOSES: 1. Acute kidney injury secondary to prostate cancer with bone metastasis. 2. Chronic anemia. 3. Generalized weakness, multifactorial. 4. Metabolic acidosis. 5. Impaired glucose tolerance with hemoglobin A1c of 5.8. 6. Secondary hyperparathyroidism. PTH was 385. 7. Leukopenia on admission. WBC on admission was 2.9. Repeat labs after 1 or 2 weeks are recommended. 8. Srpkjjtn-qb-rzukfe tricuspid regurgitation. 9. Fwld-uj-jsrqccvr mitral regurgitation. 10. Elevated pulmonary artery pressure of 65. The sleep study as an outpatient is recommended. Pulmonary evaluation as an outpatient is also recommended. 11. Hypertension. TEST PENDING AT DISCHARGE: Prostate biopsy. Primary care physician advised to follow. Total time coordinating the discharge of this patient was 37 minutes. Job ID: [id number]
== END 2019-05-16 18:38 | disposition home or self-care (01) | DRG 723 ==
LOC: ERS 02:38 → T4-B 05:01
PROVIDERS: ADMIT Hospitalist; ATTEND Hospitalist
PROC: 0T9430Z Drainage of Left Kidney Pelvis with Drainage Device, Percutaneous Approach (ICD-10-PCS; principal; 2019-05-14)
PROC: 0T9330Z Drainage of Right Kidney Pelvis with Drainage Device, Percutaneous Approach (ICD-10-PCS; 2019-05-14)
PROC: 0VB07ZX Excision of Prostate, Via Natural or Artificial Opening, Diagnostic (ICD-10-PCS; 2019-05-15)
DX: C61 Malignant neoplasm of prostate (principal); N17.9 Acute kidney failure, unspecified; E87.2 Acidosis; C79.51 Secondary malignant neoplasm of bone; N13.1 Hydronephrosis with ureteral stricture, not elsewhere classified; N40.0 Benign prostatic hyperplasia without lower urinary tract symptoms; R73.9 Hyperglycemia, unspecified; D63.1 Anemia in chronic kidney disease; D72.819 Decreased white blood cell count, unspecified; Z88.5 Allergy status to narcotic agent
CPT/HCPCS: 36415; 36430; 50430; 50433; 71045; 74176; 78306; 80048; 80069; 81001; 82728; 83036; 83540; 83550; 83970; 84153; 85014; 85018; 85025; 85049; 85610; 85730; 86850; 86900; 86901; 93005; 93306; A9503; C1729; C1769; J0696; J2250; J2704; J3010; J3490; P9016; Q5105

== ENCOUNTER → 2019-05-24 | Day surgery (SDC) | payer MEDICARE ==
--- NOTE | 2019-05-24 15:58 | SPC ---
EXAM: SPC INJ PROC NEPH /URET EXIST PROVIDED CLINICAL HISTORY: Patient with distal ureteral obstruction. Patient has bilateral nephrostomy tubes in place which are not draining appropriately. Fluoroscopy: Total fluoroscopy time is 0.5 minutes with total dose of 4064 mGy centimeter squared COMPARISON: Images from bilateral nephrectomies nephrostomy tube placement on 05/14/2019. FINDINGS: A sterile contrast filled syringe was connected to each nephrostomy tube. Bilateral nephrostograms we re performed. The tubes flushed easily and without difficulty. There is improvement in bilateral hydronephrosis which was noted on the prior exam with only mild hydronephrosis on the current study. Nephrostomy tubes were easily injected as well as aspirated. Each nephrostomy tube was flushed and then placed to gravity drainage. Positioning of the nephrostomy tubes is unchanged from prior exam. P atient tolerated the procedure well and without immediate complication. IMPRESSION: Bilateral nephrostograms demonstrate patent bilateral nephrostomy tubes. There is improvement in bila teral hydronephrosis and hydroureter noted on prior exam.
== END ==
LOC: RAD 14:33 → EDSTATUS 15:00
PROVIDERS: ATTEND Urology
PROC: BT141ZZ Fluoroscopy of Kidneys, Ureters and Bladder using Low Osmolar Contrast (ICD-10-PCS; principal; 2019-05-24)
DX: N13.1 Hydronephrosis with ureteral stricture, not elsewhere classified (principal)
CPT/HCPCS: 50431

== ENCOUNTER 2019-06-04 14:01 | Outpatient (CLI) | payer MEDICARE ==
--- NOTE | 2019-06-04 17:07 | CT ---
CT OF THE THORAX WITHOUT IV CONTRAST: 06/04/19 INDICATION: History of metastatic prostatic cancer. FINDINGS: There is a calcified pleural plaque along the anterolateral aspect of both the right and left upper l obe. There is calcified pleural plaques overlying the hemidiaphragms bilaterally. There is a calcifie d granuloma in the right middle lobe. No suspicious pulmonary nodule is evident. There is some subseg mental volume loss involving both lower lobes. There is diffuse osseous metastatic disease. There are calcified lymph nodes within the mediastinum and right hilar region. There are coronary artery thor acic aortic calcifications. The visualized upper abdomen reveals partial visualization of bilateral ureteral stents. IMPRESSION: 1. Findings of asbestos related pleural disease. 2. Findings of prior granulomatous disease. 3. No evidence of intrathoracic metastatic disease. 4. Diffuse osseous metastatic disease. POS: BH
== END 2019-06-04 14:02 | disposition home or self-care (01) ==
LOC: BICCT 14:01
PROVIDERS: ATTEND Internal Medicine Hematology & Oncology
DX: C61 Malignant neoplasm of prostate (principal); C79.51 Secondary malignant neoplasm of bone
CPT/HCPCS: 71250

== ENCOUNTER 2019-06-29 12:01 | Day surgery (SDC) | payer MEDICARE ==
[2019-06-29] MEDS ORDERED: Acetaminophen 500 MG TAB PO SCH (12:45)
[2019-06-29] MEDS ORDERED: diphenhydrAMINE 25 MG CAP PO SCH (12:45)
[2019-06-29] MEDS ORDERED: Sodium Chloride 0.9% 20 ML ONE (12:46)
[2019-06-29 15:13] VITALS: BP 138/65; TEMP 97.5
== END 2019-06-29 15:14 | disposition home or self-care (01) ==
LOC: ONC/OP 12:01
PROVIDERS: ATTEND Internal Medicine Hematology & Oncology
PROC: 30233N1 Transfusion of Nonautologous Red Blood Cells into Peripheral Vein, Percutaneous Approach (ICD-10-PCS; principal; 2019-06-29)
DX: D64.9 Anemia, unspecified (principal); D69.6 Thrombocytopenia, unspecified
CPT/HCPCS: 36430; 80053; 82248; 83615; 84100; 84153; 84550; 86850; 86900; 86901; P9016; Q0163

== ENCOUNTER 2019-07-02 16:47 | Day surgery (SDC) | payer MEDICARE ==
[2019-07-02] MEDS ORDERED: diphenhydrAMINE 25 MG CAP PO SCH (17:15)
[2019-07-02] MEDS ORDERED: Acetaminophen 500 MG TAB PO SCH (17:15)
[2019-07-02 18:07] VITALS: BMI 24.1
[2019-07-02 23:03] VITALS: BP 142/67
[2019-07-02 23:05] VITALS: TEMP 98.9
[2019-07-02 23:11] LABS: Hemoglobin 7.9 g/dL (14.0-18.0); Mean Corpuscular HGB CONC 33.7 g/dL (32.0-36.0); Mean Platelet Volume 8.1 fL (7.4-10.4); Platelet Count 166 thou/uL (130-400); RBC Distribution Width 14.5 % (11.5-14.5); Red Blood Cell (RBC) Count 2.63 mill/uL (4.70-6.10); White Blood Cell (WBC) Count 2.1 thou/uL (4.8-10.8)
[2019-07-02 23:19] LABS: Band 20 % (5-11); Lymphocytes 15 % (21-51); MDiff Complete? YES; Monocytes 1 % (0-10); Neutrophil 64 % (42-75); Platelet Morphology Comment Appears Adequate
== END 2019-07-03 00:05 | disposition home or self-care (01) ==
LOC: ONC/OP 16:47 → ONC 16:47 → ONC/OP 07-03 00:05
PROVIDERS: ATTEND Internal Medicine Hematology & Oncology
PROC: 30233N1 Transfusion of Nonautologous Red Blood Cells into Peripheral Vein, Percutaneous Approach (ICD-10-PCS; principal; 2019-07-02)
DX: D64.9 Anemia, unspecified (principal); D69.6 Thrombocytopenia, unspecified
CPT/HCPCS: 36430; 85025; 86850; 86900; 86901; P9016; Q0163

== ENCOUNTER 2019-12-03 07:26 | Day surgery (SDC) | payer MEDICARE ==
--- NOTE | 2019-12-03 10:58 | RAD ---
Abdomen one view HISTORY: Prostate cancer. Ureteral obstruction. Delayed imaging after antegrade nephrostogram shows bilateral nephrostomy tubes in place. Contrast berman s completely cleared from the left renal collecting system and ureter. The right renal collecting system and ureter retained contrast and are mildly distended. There are ci rcumferential narrowing of the distal ureter. Contrast was seen to pass into the bladder at the time of the nephrostogram. Sclerotic lesions throughout the bones consistent with known widespread osseous metastatic disease. IMPRESSION: Persistent high grade narrowing of the distal right ureter. High-grade obstruction. No evidence of left ureteral obstruction. Bilateral percutaneous nephrostomy catheters in place.
--- NOTE | 2019-12-03 11:04 | SPC ---
Bilateral percutaneous antegrade nephrostogram Fluoroscopic guided bilateral percutaneous nephrostomy catheter exchange HISTORY: Prostate cancer. Ureteral obstruction. FINDINGS: After explaining the procedure and answering all questions, the back and percutaneous nephr ostomy catheters were prepped and draped in usual sterile fashion. Contrast injected into the right percutaneous nephrostomy catheter, opacifying a nondilated right carolyn al collecting system and ureter. There was narrowing of the distal right ureter. Small amount of contrast was seen to pass into the urinary bladder. Guidewire was placed to hold position, and the ol d catheter removed. A new 8 [place] locking loop catheter was placed into the right renal collecting system. Position confirmed. Secured externally. Catheter was capped for delayed imaging. Contrast was then injected into the left percutaneous nephrostomy catheter, opacifying a nondilated r enal collecting system and ureter. Contrast passed into the urinary bladder. Guidewire was used to hold position and the old catheter removed. A new 8 [place] locking loop catheter was placed into the renal collecting system. Secured externally and capped for delayed imaging. Patient tolerated the procedure well and was eventually dismissed in good condition. IMPRESSION: Technically successful bilateral percutaneous nephrostomy catheter exchange. Delayed imag ing obtained for completion of bilateral nephrostograms. Reported separately.
[2019-12-03] MEDS ORDERED: Iopamidol 300 61% 100 ML VIAL FS ONE (15:39)
[2019-12-03 16:09] VITALS: BP 130/96; TEMP 97.6
== END 2019-12-03 11:20 | disposition home or self-care (01) ==
LOC: SPEC 07:26
PROVIDERS: ATTEND Urology
PROC: 0T25X0Z Change Drainage Device in Kidney, External Approach (ICD-10-PCS; principal; 2019-12-03)
DX: C61 Malignant neoplasm of prostate (principal); N13.5 Crossing vessel and stricture of ureter without hydronephrosis; I10 Essential (primary) hypertension; Z88.5 Allergy status to narcotic agent
CPT/HCPCS: 50431; 50436; 74018; 75984; C1729; Q9967